=== PATIENT | female | born 1985 | race African-American/Black ===

== ENCOUNTER 2017-07-24 17:39 | Emergency (ER) | payer SELFPAY ==
[~2017-07-24] VITALS: Ht 160 cm; Wt 78.5 kg
[~2017-07-24 17:39] MED LIST: IBUP600T26 PO; METH750T2 PO; ZOFR4TAB3 SL
[2017-07-24 17:40] VITALS: BP 163/98; PULSE 99; RESP 20; TEMP 99.3; O2SAT 95
--- NOTE | 2017-07-24 20:36 | PD ---
HPI Chief Complaint: Cold / Flu Symptoms Time Seen by Provider: 20:22 Travel History International Travel<30 days: No Contact w/Intl Traveler<30days: No Traveled to known affect area: No History of Present Illness HPI This is a 31-year-old female here with reported fever, sore throat, cough, body ache times one day. Symptom severity is moderate. No aggravating or alleviating factors. Exposure to flu. PFSH Past Medical History Medical History: Denies Significant Hx Autoimmune Disease: No Blood Disorders: No Anxiety: No Depression: No Cancer: No Cardiovascular Problems: No Chemotherapy: No Diabetes: No Diminished Hearing: No Endocrine: No Gastrointestinal Disorders: No Glaucoma: No Genitourinary: No Heparin Induced Thrombocytopen: No Immune Disorder: No Implanted Vascular Access Dvce: No Musculoskeletal: No Neurologic: No Psychiatric: No Reproductive: No Respiratory: No Radiation Therapy: No Sickle Cell Disease: No Thyroid Disease: No ?: Not LMP: May : 3 Para: 1 Miscarriage: 1 : 1 Past Surgical History Gynecologic Surgery: Yes (S/P D AND C 05/27/08) Other Surgery: Yes Social History Alcohol Use: Yes (OCCASSIONAL ) Tobacco Use: Yes (rarely) Substance Use: No Allergies-Medications (Allergen,Severity, Reaction): Coded Allergies: No Known Allergies (Verified Adverse Reaction, Unknown, 07/24/17) Reported Meds & Prescriptions Reported Meds & Active Scripts Active No Active Prescriptions or Reported Medications Review of Systems Except as stated in HPI: all other systems reviewed are Neg General / Constitutional: Positive: Fever Eyes: No: Visual changes HENT: Positive: Sore Throat, Congestion Cardiovascular: No: Chest Pain or Discomfort Respiratory: Positive: Cough Gastrointestinal: No: Abdominal Pain Genitourinary: No: Dysuria Musculoskeletal: Positive: Myalgias Skin: No Rash Neurologic: No: Weakness Physical Exam Narrative GENERAL: Alert and well-appearing 31-year-old female SKIN: Warm and dry. No rash HEAD: Normocephalic. EYES: No injection or drainage. Ear/nose/throat: No TM erythema. Clear nasal discharge. Mild pharyngeal erythema without tonsillar hypertrophy or exudate. NECK: Supple. No meningismus CARDIOVASCULAR: Regular rate and rhythm RESPIRATORY: Breath sounds equal bilaterally. No accessory muscle use. GASTROINTESTINAL: Abdomen soft, non-tender, nondistended. MUSCULOSKELETAL: No cyanosis, or edema. BACK: No CVA tenderness. Data Data Last Documented VS Vital Signs Date Time Temp Pulse Resp B/P (MAP) Pulse Ox O2 Delivery O2 Flow Rate FiO2 07/24/17 17:40 99.3 99 20 163/98 (119) 95 Room Air MDM Medical Decision Making Medical Screen Exam Complete: Yes Emergency Medical Condition: Yes Differential Diagnosis Influenza, strep pharyngitis, bronchitis, pneumonia Narrative Course This is a 31-year-old female here with flulike illness times one day. She has had known exposure to influenza. She is nontoxic appearing. She appears well- hydrated. Diagnosis Primary Impression: Influenza-like illness Referrals: Primary Care Physician Departure Forms: Tests/Procedures, Work Release Enter return to work date: Jul 27, 2017 Additional Instructions: Tylenol and ibuprofen for fever and pain. Stay well-hydrated. Scripts Benzonatate (Tessalon Perles) 100 Mg Cap 200 MG PO TID Y for COUGH, #12 CAP 0 Refills Prov: Julissa Hartlye 07/24/17 Oseltamivir (Tamiflu) 75 Mg Cap 75 MG PO BID for Mgmt Viral Infection for 5 Days, #10 CAP 0 Refills Prov: Julissa Hartley 07/24/17 Disposition: 01 DISCHARGE HOME Condition: Stable Julissa Hartley Jul 24, 2017 20:36
[2017-07-24] MEDS ORDERED: BENZ100 PO (20:40)
[2017-07-24] MEDS ORDERED: OSEL75 PO (20:40)
== END 2017-07-24 20:48 | disposition home or self-care (01) ==
LOC: NEPK 17:39
DX: J11.1 Influenza due to unidentified influenza virus with other respiratory manifestations (principal); Z72.0 Tobacco use
CPT/HCPCS: 99284